=== PATIENT | male | born 1975 | race Caucasian/White ===

== ENCOUNTER 2016-08-22 13:05 | Emergency (ER) | payer BC ==
--- NOTE | 2016-08-24 08:22 | ER ---
ADMIT: 08/22/2016 RM/LOC: [facility] MR#: [id number] [facility] [address] [place] [id number] CARLOS LOW [address] [place] [id number] Emergency Room Report SEX: M AGE: 40 : 1975 DATE: 08/22/2016 TIME: 1305 hours. Please refer to my T-sheet for complete H and P. Briefly, the patient is a 40-year-old, who comes in with chest pain that started about 9 this morning. It has been kind of persistent. He drove up to [place], who is going to work on a cabin when he said it got worse, it seemed to rotate to his shoulders. He became very anxious. He felt dizzy, came back here for evaluation. He has never had any heart problems. He does not smoke. He does have high blood pressure, though. PHYSICAL EXAMINATION: VITAL SIGNS: Blood pressure 161/107, pulse 115, respirations 14, temp 97.7, and sat 99%. GENERAL: Mildly anxious. HEENT: Grossly normal. LUNGS: Clear. HEART: Regular. Tachy. No murmur. ABDOMEN: Soft. SKIN: No rash. EMERGENCY DEPARTMENT COURSE: Chest x-ray was negative. EKG was sinus rhythm, rate 111. No changes. CBC normal. Chemistries normal. Cardiac enzymes negative. D-dimer normal. TSH normal. I had a long discussion with him. He is ready for discharge. ASSESSMENT: Atypical chest pain. PLAN: Continue an aspirin a day. I want him to see his primary this week coming up. I would like him to get an outpatient stress test. He understood the risks and benefits. They are ready for discharge. Sourav La MD/ scarlett JOB #: [id number] CC: Sourav La MD, Attending Physician Abhijit Nur MD, Family Physician
== END 2016-08-22 15:05 | disposition home or self-care (01) ==
LOC: ER 13:05
DX: R07.89 Other chest pain (principal); I10 Essential (primary) hypertension; Z79.899 Other long term (current) drug therapy; Z79.82 Long term (current) use of aspirin